=== PATIENT | female | born 1940 | race Caucasian/White ===

== ENCOUNTER 2020-10-21 09:20 | Outpatient (REF) | payer MEDICARE, SELFPAY ==
[2020-10-21 12:02] LABS: Alanine Aminotransferase 8 U/L (0-31); Albumin Level 4.4 g/dL (3.5-5.0); Alkaline Phosphatase 66 U/L (39-117); Anion Gap 14 (12-20); Aspartate Amino Transferase 15 U/L (5-31); Bilirubin Total 0.8 mg/dL (0.0-1.0); Blood Urea Nitrogen 13 mg/dL (9-16); Calcium 9.3 mg/dL (8.4-10.2); Carbon Dioxide 26 mmol/L (22-29); Chloride 106 mmol/L (96-108); Cholesterol 297 mg/dL; Estimated Glomerular Filt Rate 57; Glucose Fasting 95 mg/dL (60-99); HDL Cholesterol 62 mg/dL; LDL Cholesterol Calculated 202 mg/dl; Potassium 4.8 mmol/l (3.3-5.1); Sodium 141 mmol/L (135-145); Total Protein 6.9 g/dL (6.5-8.0); Triglycerides 169 mg/dL
[2020-10-21 12:06] LABS: Free T4 (Free Thyroxine) 0.92 ng/dL (0.71-1.85); Thyroid Stimulating Hormone 2.19 uIU/mL (0.32-4.0)
== END 2020-10-21 09:21 | disposition home or self-care (01) ==
LOC: HO.MANLR 09:20
PROVIDERS: PCP Internal Medicine; Visit Provider Internal Medicine
DX: I10 Essential (primary) hypertension (principal); E78.5 Hyperlipidemia, unspecified; E03.9 Hypothyroidism, unspecified
CPT/HCPCS: 80053; 80061; 84439; 84443

== ENCOUNTER 2022-02-05 11:05 | Outpatient (REF) | payer MEDICARE, SELFPAY ==
[2022-02-05 13:46] LABS: Hematocrit 40.4 % (37.0-47.0); Hemoglobin 13.8 g/dl (12.0-16.0); Mean Corpuscular HGB Conc 34.2 g/dl (31.0-35.0); Mean Corpuscular Hemoglobin 33.5 pg (27.0-33.0); Mean Corpuscular Volume 98.1 fL (80.0-98.0); Mean Platelet Volume 10.9 fL (9.4-12.3); Platelet Count 238 X10*3/uL (160-400); Red Blood Count 4.12 X10*6/uL (4.20-5.50); Red Cell Distribution Width 12.5 % (11.0-16.0); White Blood Count 5.3 X10*3/uL (4.8-10.8)
[2022-02-05 14:00] LABS: Alanine Aminotransferase 12 U/L (0-31); Albumin Level 4.4 g/dL (3.5-5.0); Alkaline Phosphatase 60 U/L (39-117); Anion Gap 12 (12-20); Aspartate Amino Transferase 19 U/L (5-31); Bilirubin Total 0.9 mg/dL (0.0-1.0); Blood Urea Nitrogen 16 mg/dL (9-16); Calcium 9.6 mg/dL (8.4-10.2); Carbon Dioxide 28 mmol/L (22-29); Chloride 106 mmol/L (96-108); Cholesterol 255 mg/dL; Estimated Glomerular Filt Rate 60; Glucose Fasting 94 mg/dL (60-99); HDL Cholesterol 66 mg/dL; LDL Cholesterol Calculated 165 mg/dl; Potassium 4.5 mmol/L (3.3-5.1); Sodium 141 mmol/L (135-145); Total Protein 6.7 g/dL (6.5-8.0); Triglycerides 124 mg/dL
[2022-02-05 14:21] LABS: Thyroid Stimulating Hormone 2.72 uIU/mL (0.32-4.0); Vitamin D 25-OH Total 10.2 ng/mL (>30)
== END 2022-02-05 11:06 | disposition home or self-care (01) ==
LOC: HO.MANLDS 11:05
PROVIDERS: PCP Internal Medicine; Visit Provider Internal Medicine
DX: E03.9 Hypothyroidism, unspecified (principal); E78.5 Hyperlipidemia, unspecified; I10 Essential (primary) hypertension
CPT/HCPCS: 36415; 80053; 80061; 82306; 84443; 85027

== ENCOUNTER 2022-07-26 09:22 | Outpatient (REF) | payer MEDICARE, SELFPAY ==
[2022-07-26 11:13] LABS: MANUAL DIFF FLAG NO
[2022-07-26 11:31] LABS: Basophils Percent Auto 0.7 % (0-2); Eosinophils Absolute Auto 0.1 X10*3/uL (0.0-0.4); Eosinophils Percent Auto 1.8 % (0-4); Hematocrit 40.6 % (37.0-47.0); Hemoglobin 14.1 g/dl (12.0-16.0); Imm Gran Abs Auto 0.02 X10*3/uL (0.00-0.03); Imm Gran Pct Auto 0.4 % (0.0-0.4); Lymphocytes Absolute Auto 2.5 X10*3/uL (1.2-4.9); Lymphocytes Percent Auto 44.6 % (20-40); Mean Corpuscular HGB Conc 34.7 g/dl (31.0-35.0); Mean Corpuscular Hemoglobin 34.2 pg (27.0-33.0); Mean Corpuscular Volume 98.5 fL (80.0-98.0); Mean Platelet Volume 10.5 fL (9.4-12.3); Monocytes Absolute Auto 0.5 X10*3/uL (0.1-1.2); Monocytes Percent Auto 8.8 % (2-11); Neutrophils Absolute Auto 2.4 x10*3/uL (2.0-8.3); Neutrophils Percent Auto 43.7 % (45-73); Platelet Count 212 X10*3/uL (160-400); Red Blood Count 4.12 X10*6/uL (4.20-5.50); Red Cell Distribution Width 12.8 % (11.0-16.0); White Blood Count 5.6 X10*3/uL (4.8-10.8)
[2022-07-26 12:14] LABS: Thyroid Stimulating Hormone 3.44 uIU/mL (0.32-4.0); Vitamin D 25-OH Total 54.8 ng/mL (>30)
== END 2022-07-26 09:23 | disposition home or self-care (01) ==
LOC: HO.MANLDS 09:22
PROVIDERS: Visit Provider Internal Medicine
DX: E55.9 Vitamin D deficiency, unspecified (principal)
CPT/HCPCS: 36415; 82306; 84439; 84443; 85025

== ENCOUNTER 2022-08-20 09:12 | Outpatient (REF) | payer MEDICARE, SELFPAY ==
[2022-08-20 11:11] LABS: MANUAL DIFF FLAG NO
[2022-08-20 11:32] LABS: Basophils Percent Auto 0.6 % (0-2); Eosinophils Absolute Auto 0.1 X10*3/uL (0.0-0.4); Eosinophils Percent Auto 0.7 % (0-4); Hematocrit 30.3 % (37.0-47.0); Hemoglobin 10.6 g/dl (12.0-16.0); Imm Gran Abs Auto 0.04 X10*3/uL (0.00-0.03); Imm Gran Pct Auto 0.6 % (0.0-0.4); Lymphocytes Absolute Auto 2.1 X10*3/uL (1.2-4.9); Lymphocytes Percent Auto 30.3 % (20-40); Mean Corpuscular Hemoglobin 35.3 pg (27.0-33.0); Monocytes Absolute Auto 0.6 X10*3/uL (0.1-1.2); Neutrophils Absolute Auto 4.1 x10*3/uL (2.0-8.3); Neutrophils Percent Auto 59.8 % (45-73); Platelet Count 256 X10*3/uL (160-400); Red Cell Distribution Width 12.8 % (11.0-16.0); White Blood Count 6.9 X10*3/uL (4.8-10.8)
[2022-08-20 11:55] LABS: Alanine Aminotransferase 10 U/L (0-31); Albumin Level 4.5 g/dL (3.5-5.0); Alkaline Phosphatase 44 U/L (39-117); Anion Gap 17 (12-20); Aspartate Amino Transferase 25 U/L (5-31); Bilirubin Total 0.6 mg/dL (0.0-1.0); Blood Urea Nitrogen 28 mg/dL (9-16); Calcium 9.4 mg/dL (8.4-10.2); Carbon Dioxide 23 mmol/L (22-29); Chloride 108 mmol/L (96-108); Estimated Glomerular Filt Rate 48; Glucose Random 101 mg/dL (60-115); Iron 72 mcg/dL (30-160); Percent Iron Saturation 22 % (15-50); Potassium 4.1 mmol/L (3.3-5.1); Sodium 144 mmol/L (135-145); Total Iron Binding Capacity 326 mcg/dL (228-428); Total Protein 6.6 g/dL (6.5-8.0); Unsaturated Iron Binding 254 ug/dL
[2022-08-20 11:59] LABS: Ferritin 129 ng/mL (10-250)
== END 2022-08-20 09:13 | disposition home or self-care (01) ==
LOC: HO.MANLDS 09:12
PROVIDERS: Visit Provider Physician Assistant
DX: K92.1 Melena (principal)
CPT/HCPCS: 36415; 80053; 82728; 83540; 85025

== ENCOUNTER 2024-02-14 14:17 | Outpatient (REF) | payer MEDICARE, SELFPAY ==
[2024-02-14 18:01] LABS: MANUAL DIFF FLAG NO
[2024-02-14 18:33] LABS: Alanine Aminotransferase 12 U/L (0-31); Albumin Level 4.4 g/dL (3.5-5.0); Alkaline Phosphatase 46 U/L (39-117); Anion Gap 13 (12-20); Aspartate Amino Transferase 23 U/L (5-31); Bilirubin Total 0.7 mg/dL (0.0-1.0); Blood Urea Nitrogen 19 mg/dL (9-16); Calcium 9.3 mg/dL (8.4-10.2); Carbon Dioxide 24 mmol/L (22-29); Chloride 106 mmol/L (96-108); Estimated Glomerular Filt Rate > 60; Glucose Random 81 mg/dL (60-115); Potassium 4.6 mmol/L (3.3-5.1); Sodium 138 mmol/L (135-145); Total Protein 6.6 g/dL (6.5-8.0)
[2024-02-14 18:37] LABS: Basophils Percent Auto 0.5 % (0-2); Eosinophils Absolute Auto 0.1 X10*3/uL (0.0-0.4); Eosinophils Percent Auto 0.9 % (0-4); Hematocrit 38.5 % (37.0-47.0); Hemoglobin 13.2 g/dl (12.0-16.0); Imm Gran Abs Auto 0.01 X10*3/uL (0.00-0.03); Imm Gran Pct Auto 0.2 % (0.0-0.4); Lymphocytes Absolute Auto 2.3 X10*3/uL (1.2-4.9); Lymphocytes Percent Auto 39.2 % (20-40); Mean Corpuscular HGB Conc 34.3 g/dl (31.0-35.0); Mean Corpuscular Hemoglobin 34.4 pg (27.0-33.0); Mean Corpuscular Volume 100.3 fL (80.0-98.0); Monocytes Absolute Auto 0.5 X10*3/uL (0.1-1.2); Monocytes Percent Auto 8.2 % (2-11); Platelet Count 217 X10*3/uL (160-400); Red Blood Count 3.84 X10*6/uL (4.20-5.50); Red Cell Distribution Width 12.4 % (11.0-16.0); White Blood Count 5.9 X10*3/uL (4.8-10.8)
[2024-02-14 18:49] LABS: Vitamin D 25-OH Total 23.8 ng/mL (>30)
== END 2024-02-14 14:18 | disposition home or self-care (01) ==
LOC: HO.MANLDS 14:17
PROVIDERS: Visit Provider Internal Medicine
DX: I10 Essential (primary) hypertension (principal); E55.9 Vitamin D deficiency, unspecified
CPT/HCPCS: 36415; 80053; 82306; 85025

== ENCOUNTER 2025-04-03 11:32 | Outpatient (REF) | payer MEDICARE, SELFPAY ==
--- OUTSIDE RECORDS SUMMARY | 2025-04-03 12:52 | XMS_ITS | Data Portability ---
Author Organization [facility], Main Office Address [address] [place] [address] [facility] [address] [place] [address] Care Team Providers Care Director Financial Analysis Name Role Phone JR ZUNIGA ([place]) OTHER Assessment Encounter Date Assessment Date Assessment LastModified by Organization Details LastModified Time 04/07/2018 04/07/201804/06: na 143, k 5.3, bun 17, creat 0.70, wbc 8.48, hgb 10.3, hct 31.7 glord Not available 04/07/2018 11:52:06 04/13/2018 04/13/201804/06: na 143, k 5.3, bun 17, creat 0.70, wbc 8.48, hgb 10.3, hct 31.7 [place] Not available 04/13/2018 11:17:51 04/17/2018 04/17/2018 Labs 04/11-WBC-6.85 , H/H-10.4/32.4 , plts-277, BUN/Cr-15/0.7 , Na+145, K+5.0 glord Not available 04/17/2018 11:49:48 04/27/2018 04/27/2018 6: na 145, k 5.2, glord Not available 04/27/2018 11:54:34 Plan of Treatment Reminders Order Date Submit Date Provider Last Modified By Organization Details Last Modified Time Details Appointments None record ed. Lab None record ed. Referral None record ed. Procedures None record ed. Surgeries None record ed. Imaging None record ed. Medication Orders None record ed. Patient TargetsNo targets recorded. Patient InstructionsNo instructions recorded. Reason for Referral None Reported. Problems Name Problem SNOMED Code Status Onset Date Resolution Date Notes Provider Name and Address Organization Details Recorded Time Constipatio n 86171531 Active 2017 ANDREINA LORD [address], [address], [place], [address], [facility] 8 11:47:31 History of right hip replacement 2707533647853 108 Active 2017 ANDREINA BAUTISTA [address] [place] [address], [address], [place], [address], [facility] 8 11:48:12 Hyperlipide angeli 48368848 Active [address], [address], [place], [address], [facility] 8 11:48:47 Essential hypertensio n 36543183 Active [address], [address], [place], [address], [facility] 8 11:49:10 Depressive disorder 88215605 Active [address], [address], [place], [address], [facility] 8 11:49:35 Hyperkalemi a 28176622 Active [address], [address], [place], [address], [facility] 8 11:52:09 Fracture of talus 482228846 Active [address], [address], [place], [address], [facility] 8 12:04:44 Closed intertrocha nteric fracture of right femur 8537374825215 9109 Active 2017 Allyson Guerra MD [address] [facility], [address], [place], [address], [facility] 8 11:41:31 Fracture of talus 860490235 Active 2017 Allyson Guerra MD [address] [facility], [address], [place], [address], [facility] 8 11:43:25 Cramp in calf 313475088 Active 2017 Allyson Guerra MD [address] [facility], [address], [place], [address], [facility] 8 11:47:29 Problem Notes None recorded. Medical Equipment None Reported. Allergies No known drug allergies Vitals Date Recorded Heart rate Respiratory rate Body temperature Oxygen saturation Oxygen saturation in Arterial blood by Pulse oximetry Systolic blood pressure Diastolic blood pressure Provider Name and Address Organization Details Last Updated DateTime 8 70 /min 18 /min 97.9 [degF] 96 % 96 % 136 mm[Hg] 78 mm[Hg] ANDREINA BAUTISTA [address] [facility], [address], [place], [address], [facility] 8 12:09:28 Date Recorded Body weight Heart rate Respiratory rate Body temperature Oxygen saturation Oxygen saturation in Arterial blood by Pulse oximetry Body mass index (BMI) Body height Systolic blood pressure Diastolic blood pressure Systolic blood pressure Diastolic blood pressure Systolic blood pressure Diastolic blood pressure Provider Name and Address Organization Details Last Updated DateTime 8 18918.8 8 g 75 /min 15 /min 98.4 [degF] 98 % 98 % 28.6 kg/m2 154.94 cm 130 mm[Hg] 65 mm[Hg] 144 mm[Hg] 72 mm[Hg] 171 mm[Hg] 81 mm[Hg] Allyson Guerra MD [address] [facility], [facility] [address], [place], [address], [facility] 8 10:57:39 Date Recorded Body height Heart rate Respiratory rate Body temperature Oxygen saturation Oxygen saturation in Arterial blood by Pulse oximetry Systolic blood pressure Diastolic blood pressure Provider Name and Address Organization Details Last Updated DateTime 8 154.94 cm 71 /min 20 /min 97.1 [degF] 96 % 96 % 174 mm[Hg] 83 mm[Hg] [facility] [address] [facility], [address], [place], [address], [facility] 8 11:42:59 Date Recorded Body height Heart rate Respiratory rate Body temperature Oxygen saturation Oxygen saturation in Arterial blood by Pulse oximetry Systolic blood pressure Diastolic blood pressure Systolic blood pressure Diastolic blood pressure Provider Name and Address Organization Details Last Updated DateTime 8 154.94 cm 85 /min 16 /min 98.6 [degF] 95 % 95 % 167 mm[Hg] 88 mm[Hg] 176 mm[Hg] 80 mm[Hg] ANDREINA BAUTISTA [address] , [address], [place], [address], [facility] 8 11:37:40 Date Recorded Systolic blood pressure Diastolic blood pressure Provider Name and Address Organization Details Last Updated DateTime 04/12/2018 130 mm[Hg] 65 mm[Hg] Fatimah Taylor [facility] 04/12/2018 14:59:38 Social History Question Answer Notes LastModified by Organizat ion Details LastModified Time Tobacco Smoking Status Never Smoker ANDREINA BAUTISTA [address] , [address], [place], [address], [facility] 04/07/2018 11:53:41 Do You Have An Advance Directive? Yes Full Code Information not available 04/07/2018 How Many Years Have You Consumed Alcohol? 0 Information not available 04/07/2018 How Much Tobacco Do You Chew? None Information not available 04/07/2018 How Many Days In The Past Year Have You Had A Heavy Drinking Consumption (4+ Female, 5+ Male)? 0 Information not available 04/07/2018 Do You Have A Medical Power Of Manager Group Home? Yes [place] Information not available 04/13/2018 What Was The Date Of Your Most Recent Tobacco Screening? 04/27/2018 Information not available 06/06/2019 How Much Tobacco Do You Smoke? No Information not available 04/07/2018 Has Tobacco Cessation Counseling Been Provided? No Information not available 04/07/2018 How Many Years Have You Smoked Tobacco? 0 Information not available 04/07/2018 Sex: Unknown Functional Status Question Answer Note LastModified by Organization D etails LastModified Time What is your level of alcohol consumption? None Information not available 04/07/2018 Mental Status None recorded. Family History Nothing Reported Notes:Fa at 77, had HTN , mo lived to 89 Medical History No medical history recorded. Gynecological HistoryNo gynecological history recorded. Obstetrics History GPAL:G 0 P 0 0 0 0 Past Encounters Encounter ID Performer Location Encounter Start Date Encounter Closed Date Diagnosis/Indication Diagnosis SNOMED-CT Code Diagnosis ICD10 Code Diagnosis Note [id number] ANDREINA BAUTISTA [facility] on [address] [place] [address] 04/07/2018 11:43:00 04/19/2018 13:48:55 Constipation 22201973 K59.03 Schedule colace 100 mg BIDmonitor for constipati on History of right hip replacement 4401113180 550665 Z96.641 hydromorph one 2 mg q 4 hrs PRN mod- 4 mg q 4 severeASA 325 mg BIDibuprof en 400 mg Q 6 PRNtylenol 650 mg q 8 PRNmonitor for pain control Hyperlipidemia 46638269 E78.2 Lovastatin 20 mg qhsmonitor lipids PRN Essential hypertension 47318531 I10 metoprolol tart 25 mg BIDmonitor Bp adjust as needed Depressive disorder 3548 9007 F32.89 sertraline 150 mg qdmonitor behavior, consult NEG PRN Hyperkalemia 96764139 E8 7.5 5.3- increase fluid consumptio nrecheck labs Tuesday Fracture of talus 114406 003 S92.114D Source of the most pain for this ptno rec from hospital records on how to proceedwil l consult with PT/OT on plan for pain control and healingque stion use of walking boot or cast for stabilizat ion? [id number] [place] [address] 04/12/2018 14:51:25 04/19/2018 15:22:10 Constipation 91733434 K59.00 K59.09 Colace 100 mg BIDAdd Miralax 17 [place] [id number] MD JR Luz [address] [place] [address] 04/13/2018 10:54:30 04/19/2018 16:09:17 History of right hip replacement 8133970184 726791 M15.0 As above, f/u with ortho. Fracture of talus 359661 003 S92.114D Pain still severe, call in to ortho for advice and sooner f/u appt.Possi luis enrique walking boot, air splint or cast for stabilizat ion? Constipation 18261671 K5 9.03 On Colace 100 mg BID and miralax 17 gm qd, also eating prunes. No BM et. But she feels like she may need to soon. Wants. to hold off on MOM until later today. Hyperlipidemia 21910107 E78.2 Continue lovastatin 20 mg qhsmonitor lipids as outpt. Essential hypertension 81300696 I10 One high reading when pain was severe, otherwise WNL. Continue metoprolol 25 mg BID.Monito r BP and labs. Depressive disorder 3548 9007 F32.89 Mood stable, just very frustrated by situation. Continue sertraline 150 mg qdMonitor behavior, consult NEG PRN Hyperkalemia 06301407 E8 7.5 Improved to 5.0, follow. Closed intertrochanteric fracture of right femur 9784768410 6961450 S72.144D Hip pain is much improved, still using pain med, but primarily for ankle pain. Continue hydromorph one 2 mg q 4 hrs PRN mod pain and 4 mg q 4 prn severe pain, ibuprofen 400 mg Q 6 PRN and tylenol 650 mg q 8 PRN. Continue ASA 325 mg BID for DVT prophylaxi s. PT/OT for mobility and strengthen ing. Allow increased wt. bearing when ortho says ok. F/U with ortho as planned. Cramp in calf 029103436 R25.2 Other pain she describes is cramp in right calf. I wonder if she needs vascular eval? Will see what Dr. Chahal thinks. Also could be due to tensing that side due to other pain. [id number] ANDREINA ZUNIGA [address] [place] [address] 04/17/2018 11:23:25 04/20/2018 11:07:33 Closed intertrochanteric fracture of right femur 2822873519 0297145 S72.144D Hip pain is much improved, still using pain med, but primarily for ankle pain. Continue hydromorph one 2 mg q 4 hrs PRN mod pain and 4 mg q 4 prn severe pain, ibuprofen 400 mg Q 6 PRN and tylenol 650 mg q 8 PRN. Continue ASA 325 mg BID for DVT prophylaxi s. Eventually she would like to transition to tramadol and come off dilaudid but at this time the pain is too severe. PT/OT for mobility and strengthen ing. Allow increased wt. bearing when ortho says ok. F/U with ortho this tuesday Fracture of talus 620177 003 S92.114D Pain still severe, call in to ortho for advice and sooner f/u appt- this tuesday at 9 am.Possibl y walking boot, air splint or cast for stabilizat ion? History of right hip replacement 3812399862 632203 M15.0 As above, f/u with ortho. Constipation 19114723 K5 9.03 Increase colace to 150 mg BID and miralax 17 gm qd, also eating prunes.Add senna 8.6 mg QDassess effectiven ess Cramp in calf 796352294 R25.2 Other pain she describes is cramp in right calf. I wonder if she needs vascular eval? Will see what Dr. Chahal thinks. Also could be due to tensing that side due to other pain. [id number] ANDREINA ZUNIGA [address] [place] [address] 04/27/2018 11:36:36 05/02/2018 12:13:13 Closed intertrochanteric fracture of right femur 1934055139 2484832 S72.144D Hip pain has resolved Continue pain meds for ankle pain Continue hydromorph one 2 mg q 4 hrs PRN mod pain and 4 mg q 4 prn severe pain, ibuprofen 400 mg Q 6 PRN and tylenol 650 mg q 8 PRN. Continue ASA 325 mg BID for DVT prophylaxi s. Allow increased wt. bearing when ortho says ok. F/U with ortho as planned. [facility] to follow once outpatient Constipation 56248578 K5 9.03 On Colace 100 mg BID and miralax 17 gm qd, also eating prunes. Hyperlipidemia 04052105 E78.2 Continue lovastatin 20 mg qhsmonitor lipids as outpt. Essential hypertension 85572540 I10 Elevated readings starting on 04/24Increa se metoprolol to 50 mg BID.Get BMP in the morning following elevated K last draw, hold off on discharge until lab results come inMonitor BP q shift Depressive disorder 7588 9007 F32.89 Mood stable, just very frustrated by situation. Continue sertraline 150 mg qdMonitor behavior, consult psych outpatient once discharged Hyperkalemia 59914209 E8 7.5 5.2 last drawBMP in AM to determine trend Health Concerns Section Related Observation LastModified by Organization Detai ls LastModified Time None Recorded Concern Status LastModified by Organization Details LastModified Time None Recorded Advance Directives Directive Y: full code Payers Encounter Date Sequence Insurance Name Policy Number Policy Wood Covered Member ID Wood Member ID Guarantor Name 04/07/2018 1 [facility] - MEDICARE PREFERRED (MEDICARE REPLACEMENT HMO) ROSETTA Ontiveros Camiller[place] [id number] [place] 04/12/2018 1 [facility] - MEDICARE PREFERRED (MEDICARE REPLACEMENT HMO) MCKIN[place]PS Rama Camilleri [id number] [place] 04/13/2018 1 [facility] - MEDICARE PREFERRED (MEDICARE REPLACEMENT HMO) ROSETTA Rama Cam[place]i [id number] [place] 04/17/2018 1 [facility] - MEDICARE PREFERRED (MEDICARE REPLACEMENT HMO) ROSETTA Rama Camilleri [id number] [place] 04/27/2018 1 [facility] - MEDICARE PREFERRED (MEDICARE REPLACEMENT HMO) ROSETTA Rama Camilleri [id number] [place] Notes Date Note Type Note Provider Name and Address Organization Details Recorded Time 04/07/2018 text/html 77 year old fema le seen today for initial intake visit. S/p right hip replacement bu Dr. Chahal on 03/20, uneventful pt tolerated well. Discharged home on 03/22 with no issues but then presented back to ED with severe pain in operative hip. Xray confirmed trochanteric fracture, ortho rec no surgical intervention. She is to continue high dose ASA for DVT prop. and toe- touch weightbearing as tolerated. She also has pain in right calf and ankle and was found to have chronic avulsion fracture, no DVT seen. Admitted to this facility for continued care and therapy. ANDREINA BAUTISTA [address] [place] [address], [address], [place], [address], [facility] [employer] 04/12/2018 15:38:06 04/12/2018 text/html 77 yo female see n for report of constipation. Patient here for rehab after right hip replacement. Patient reports stools are hard and infrequent. Currently on colace only for bowel regimen. Fatimah becker, [facility] [employer] 04/12/2018 15:36:34 04/13/2018 text/html This is a 77 yo woman who is here for rehab after a right hip fx which occurred postop after a right THR done by Dr. Chahal on 03/20. The original procedure was uneventful, and the pt tolerated it well. She was discharged home on 03/22 in good condition. She then had increasing pain, so severe that she couldn't bear wt. and presented back to ED. Xray showed a nondisplaced intertrochanteric fx, with no disruption of the prosthesis. Ortho recommended no surgical intervention. She is to continue high dose ASA for DVT prophylaxis. Allowed only toe- touch weightbearing. She also has pain in right calf and ankle and was found to have chronic avulsion fx of the medial malleolus. Doppler done and no DVT seen. Her primary c/o today is right lateral ankle pain and calf cramps. She says her hip pain isn't bad. Her PMH includes HTN, HLD, osteoporosis, OA, hypothyroidism and depression. 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 Her primary c/o today is right lateral ankle pain and calf cramps. She says her hip pain isn't bad but her calf and ankle are excruciating. Pt is very weepy and discouraged today stating that no one is able to help her with this pain and she feels like it should be getting better. She has made a follow up apt for this tuesday with the surgeon to discuss a plan moving forward. She also complains that her stool is hard despite the bowel meds she is on and would like those addressed. Her PMH includes HTN, HLD, osteoporosis, OA, hypothyroidism and depression. 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 She is being seen today for discharge summary visit and will be going home tomorrow. Her primary c/o is right lateral ankle pain and calf cramps that does not seem to be improving despite pain meds and constant icing. Staff is reporting an increase in blood pressures starting last night and continuous through today, she was started on a higher dose of metoprolol BID. Pt appears in NAD, denies headache, chest pain, dizziness or any other issues. Would like to get blood pressures under control before discharge home, will continue to monitor today and tomorrow before a decision is made. Her PMH includes HTN, HLD, osteoporosis, OA, hypothyroidism and depression. ANDREINA BAUTISTA [address] [place] [address], [address], [place], [address], [facility] [employer] 04/27/2018 11:55:28 OBGyn Episode No OBEpisode recorded.
--- OUTSIDE RECORDS SUMMARY | 2025-04-03 12:52 | XMS_ITS | Data Portability ---
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 REVIEW OF PRIOR EXTERNAL NOTES/RESULTS, ORDERING OF TEST(S) CATEGORY 2. 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) MDM MODERATE MUST MEET 2 OUT OF 3 ELEMENTS: PROBLEMS, DATA OR RISK ELEMENT 1: PROBLEMS ADDRESSED 1 OR MORE CHRONIC ILLNESS WITH EXACERBATION OR 2 OR MORE STABLE CHRONIC ILLNESSES OR 1 UNDIAGNOSED NEW PROBLEM OR 1 ACUTE ILLNESS W/SYMPTOMS OR 1 ACUTE COMPLICATED INJURY ELEMENT 2: DATA MUST MEET 1 OF 3 CATEGORIES CATEGORY 1: REVIEW OF PRIOR EXTERNAL NOTES, REVIEW OF RESULTS, ORDERING OF EACH TEST, ASSESSMENT REQUIRING INDEPENDENT HISTORIAN OR CATEGORY 2: INDEPENDENT INTERPRETATION OF TESTS BY ANOTHER PHYSICIAN OR SPECIALIST OR CATEGORY 3: DISCUSSION OF MGT OR TEST INTERPRETATION W/EXTERNAL PHYSICIAN OR SPECIALIST ELEMENT 3: RISK RISK OF COMPLICATIONS AND/OR MORBIDITY OR MORTALITY OF PATIENT MANAGEMENT PROVIDER MUST THOROUGHLY DOCUMENT EACH ELEMENT THAT IS COVERED Not available 03/25/2025 13:41:37 Plan of Treatment Reminders Order Date Submit Date Provider Last Modified By Organization Details Last Modified Time Details Appointments FOLLOW UP 15 2024 01:30P M DR MAGALLANES Not available Not available Not available Lab vitamin D, 25-hydrox y, total, serum 2024 025 [facility], [address] [place] [address], [id number], 03/25/2025 13:44:37 vitamin B12 + folate, serum or blood 2024 025 [facility], [address] [place] [address], [id number], 03/25/2025 13:44:37 CMP, serum or plasma 2024 025 [facility], [address] [place] [address], [id number], 03/25/2025 13:44:38 CBC 2024 025 [facility], [address] [place] [address], [id number], 03/25/2025 13:44:37 TSH, serum or plasma 2024 025 [facility], [address] [place] [address], [id number], 03/25/2025 13:44:38 vitamin D, 25-hydrox y, total, serum 2023 024 [facility], [address] [place] [address], [address], 02/15/2024 11:13:26 CMP, serum or plasma 2023 024 [facility], [address] [place] [address], [id number], 02/15/2024 11:13:26 CBC 2023 024 [facility], [address] [facility], [place], [address], 02/15/2024 11:13:26 Referral orthopedi c surgeon referral 2024 025 makenzie Spain MD, [address] [place] [address], [id number], 11/23/2024 08:32:48 Procedures None recorded. Surgeries None recorded. Imaging None recorded. Medication Orders None recorded. Patient TargetsNo targets recorded. Patient InstructionsNo instructions recorded. Reason for Referral Orthopedic Surgeon Referral for Osteoarthritis of joint of hand bilateral hand pain, OA, neuropathy (L) and contracture (R) Referring Physician: Bisi Ramos, Internal Medicine, Encounter Date: 11/16/2024 Results Created Date Observation Date Name Description Value Unit Range Abnormal Flag Note LastModifiedBy Organization Detail LastModifiedTime Result Notes None recorded. Problems Name Problem SNOMED Code Status Onset Date Resolution Date Notes Provider Name and Address Organization Details Recorded Time Degenera tion of lumbosac ral interver tebral disc 57108613 Active 2020 Not Available [facility] 4 17:39:22 Vitamin D deficien cy 65173764 Active 2021 Not Available [facility] 4 17:39:22 Mood disorder 71856810 Active 2021 Not Available [facility] 4 17:39:22 Melena 2170253 Active 2021 Not Available [facility] 4 17:39:22 Bilatera l osteoart hritis of knees 73807714276 9107 Active 2022 Not Available [facility] 4 17:39:22 Osteoart hritis of left knee joint 31283886129 9109 Active 2023 Dhiraj Magallanes, DO [address] [place], [address], [facility] [place] [facility] 4 13:49:30 Hyperlip idemia 75955810 Active 2017 Not Available [facility] 4 17:39:22 Hypothyr oidism 87861836 Active 2017 Not Available [facility] 4 17:39:22 Essentia l hyperten juan 72680058 Active 2017 Not Available [facility] 4 17:39:22 Infectio n of tooth 559221686 Active 2023 Dhiraj Magallanes DO [address] [place] [address], [address], [facility] [place] [facility] 4 14:16:52 Osteoart hritis of joint of hand 88533281 Active 2024 GAYLE MCBRIDE [address] [place] [address], [phone], [facility] [place] [facility] 5 14:18:31 Osteoart hritis of joint of hand 44814362 Active 2024 GAYLE MCBRIDE [address] [place] [address], [address], [facility] [place] [facility] 5 14:18:56 Closed intertro chanteri c fracture 57707838 Completed 201704/28/2018 [facility] RICHARD Hodges [address] [place] [address], [address], [facility] [place] [facility] 8 12:08:10 Closed fracture of talus 40864500 Completed 201704/28/2018 Mary RICHARD Hodges [address] [place] [address], [address], [facility] [place] [facility] 8 12:08:07 Closed fracture of talus 38457810 Active 2017 Not Available [facility] 4 17:39:22 Closed intertro chanteri c fracture 59873009 Active 2017 Not Available [facility] 4 17:39:22 Notes:Some problems listed i n Documents: #[id number], #[id number], #[id number], #[id number], #[id number], #[id number], #[id number] could not be added to this patient's chart. Please review these documents and add these problems to the patient's chart manually as needed. Problem Notes None recorded. Procedures Surgical History Date Name Laterality Status Provider Name and Address Organization Details Recorded Time 023 Corticosteroid Injection completed Dhiraj Magallanes, DO [address] [place], [address], [facility] [place] [facility] 03/01/2023 13:39:23 Imaging Results None recorded. Procedure Notes None recorded. Medical Equipment None Reported. Allergies Allergen ID Allergen Name Allergen Category Reaction Reaction Severity Criticality Documentation Date Start Date Code Code System Note Provider Name and Address Organization Details Recorded Time 3201 lisinopri l medicatio n cough Not available Not available 05/30/2019 41295 RxNorm Dhiraj Magallanes, DO [address] [place], [address], [facility] [place] [facility] 9 13:36:13 Medications Name Sig Start Date Stop Date Status Note LastModified by Organization Details LastModified Time amoxicillin 500 mg capsule TAKE 1 CAPSULE BY MOUTH EVERY 8 HOURS FOR 10 DAYS 11/16 completed Not Available Not Available Not Available prednisone 10 mg tablet 40 mg x 2 days, 30 mg x 2 days, 20 mg x 2 days, 10 mg x 2 days 12/03 completed Not Available Not Available Not Available aspirin 325 mg tablet Take 1 tablet twice a day by oral route. 09/08 completed Not Available Not Available Not Available metoprolol succinate ER 50 mg tablet,exte nded release 24 hr TAKE 1 TABLET BY MOUTH TWICE DAILY 08/11 completed Not Available Not Available Not Available senna 8.6 mg tablet Take 1 tablet every day by oral route. 09/08 completed Not Available Not Available Not Available ibuprofen 200 mg capsule Take 2 capsules every 6 hours by oral route. 08/18 completed Not Available Not Available Not Available metoprolol succinate ER 100 mg tablet,exte nded release 24 hr TAKE 1 TABLET BY MOUTH EVERY DAY active Not Available Not Available No t Available sertraline 100 mg tablet TAKE 1 AND ONE-HALF TABLETS BY MOUTH ONCE DAILY active Not Available Not Available No t Available tramadol 50 mg tablet TAKE 1 TABLET BY MOUTH EVERY 6 HOURS NEEDED active Not Available Not Available No t Available levothyroxi ne 75 mcg tablet TAKE 1 TABLET BY MOUTH EVERY DAY active Not Available Not Available No t Available hydromorpho ne 2 mg tablet Take 1 tablet every 4 hours by oral route. 11/28 completed Not Available Not Available Not Available meclizine 25 mg tablet Take 1 tablet 3 times a day by oral route as needed for 5 days. 05/30 completed Not Available Not Available Not Available cephalexin 500 mg capsule Take 1 capsule every 6 hours by oral route for 7 days. 07/11 completed Not Available Not Available Not Available pantoprazol e 40 mg tablet,serena yed release TAKE 1 TABLET BY MOUTH EVERY DAY 07/11 completed Not Available Not Available Not Available gabapentin 300 mg capsule TAKE 1 CAPSULE BY MOUTH AT BEDTIME active Not Available Not Available No t Available lisinopril 5 mg tablet TAKE 1 TABLET BY MOUTH ONCE DAILY 12/03 completed Not Available Not Available Not Available diclofenac sodium 50 mg tablet,serena yed release Take 1 tablet twice a day by oral route as needed for 30 days. 12/03 completed Not Available Not Available Not Available lovastatin 20 mg tablet TAKE 1 TABLET BY MOUTH ONCE A DAY 12/03 completed Not Available Not Available Not Available methylpredn isolone 4 mg tablets in a dose pack Alt: 24 mg PO on day 1, then decr. by 4 mg/day x5 days per dose pack instructi ons 11/28 completed Not Available Not Available Not Available oxycodone 5 mg tablet 05/10 completed Not Available Not Available Not Available Pneumovax-2 3 25 mcg/0.5 mL injection syringe 12/03 completed Not Available Not Available Not Available duloxetine 60 mg capsule,del ayed release Take 1 capsule every day by oral route for 30 days. 08/01 completed Not Available Not Available Not Available Boostrix Tdap 2.5 Lf unit-8 mcg-5 Lf/0.5 mL intramuscul ar syringe 12/03 completed Not Available Not Available Not Available Vitamin D3 2,000 units once a day 08/11 completed Not Available Not Available Not Available Miralax 17 grams 09/08 completed Not Available Not Available Not Available Prevnar 13 (PF) 0.5 mL intramuscul ar syringe 11/28 completed Not Available Not Available Not Available metoprolol succinate ER 100 mg capsule sprinkle, ext. release 24 hr Take 1 capsule every day by oral route for 30 days. 12/03 completed Not Available Not Available Not Available Tylenol 325 mg capsule Take 2 capsules every 8 hours by oral route. 05/30 completed prn Not Available Not Available Not Available Fluzone High-Dose 0737-1327 (PF) 180 mcg/0.5 mL intramuscul ar syringe 11/28 completed Not Available Not Available Not Available Fluzone High-Dose (PF) 180 mcg/0.5 mL intramuscul ar syringe 12/03 completed Not Available Not Available Not Available Fluad Quad 9095-7075(6 5yr up)(PF) 60 mcg (15 mcg x 4)/0.5mL IM syringe 12/03 completed Not Available Not Available Not Available Vitals Date Recorded Body height Body mass index (BMI) Body weight Heart rate Oxygen saturation Oxygen saturation in Arterial blood by Pulse oximetry Systolic blood pressure Diastolic blood pressure Provider Name and Address Organization Details Last Updated DateTime 3 154.94 cm 22.7 kg/m2 87647.0 8 g 60 /min 97 % 97 % 140 mm[Hg] 80 mm[Hg] Dhiraj Magallanes, DO [address] [place], [address] [place] [address] Internal Medicine 3 11:35:44 Date Recorded Body height Body mass index (BMI) Body weight Heart rate Oxygen saturation Oxygen saturation in Arterial blood by Pulse oximetry Systolic blood pressure Diastolic blood pressure Provider Name and Address Organization Details Last Updated DateTime 4 154.94 cm 22.1 kg/m2 38380.3 1 g 58 /min 95 % 95 % 160 mm[Hg] 90 mm[Hg] Tiara Pike [facility] 4 13:31:39 Date Recorded Body height Heart rate Oxygen saturation Oxygen saturation in Arterial blood by Pulse oximetry Systolic blood pressure Diastolic blood pressure Provider Name and Address Organization Details Last Updated DateTime 5 154.94 cm 58 /min 96 % 96 % 158 mm[Hg] 92 mm[Hg] Jazmine Pena [facility] 5 14:09:34 Date Recorded Body height Body mass index (BMI) Body weight Heart rate Oxygen saturation Oxygen saturation in Arterial blood by Pulse oximetry Systolic blood pressure Diastolic blood pressure Provider Name and Address Organization Details Last Updated DateTime 5 154.94 cm 20.8 kg/m2 25437.1 6 g 52 /min 97 % 97 % 128 mm[Hg] 62 mm[Hg] Dhiraj Magallanes, DO [address] [place], [address] [place] [address] Internal Medicine 5 13:32:39 Social History Question Answer Notes LastModified by [employer] Details LastModified Time Tobacco Smoking Status Never Smoker Not Available [facility] 09/16/2020 03:36:23 What Is Your Level Of Caffeine Consumption? Occasional [id number] Information not available 09/16/2020 What Was The Date Of Your Most Recent Tobacco Screening? 03/25/2025 Information not available 03/25/2025 Sex: Unknown Functional Status Question Answer Note LastModified by [employer] Details LastModified Time Do you use any illicit or recreational drugs? No [email or web address] Information not available 02/14/2024 Do you or have you ever used any other forms of tobacco or nicotine? No Information not available 02/16/2023 What is your level of alcohol consumption? None [id number] Information not available 09/16/2020 What is your exercise level? None [id number] Information not available 09/16/2020 Mental Status None recorded. Family History Nothing Reported. Medical History No medical history recorded. Gynecological HistoryNo gynecological history recorded. Obstetrics History GPAL:G 0 P 0 0 0 0 Immunizations Vaccine Type Date Status Note Provider Nam e and Address Organization Details Recorded Time Influenza, split virus, quadrivalent, preservative 1 completed Not Available [facility] 11/15/2023 17:39:23 COVID-19, mRNA, LNP-S, PF, 30 mcg/0.3 mL dose 1 completed Not Available [facility] 11/15/2023 17:39:23 Pneumococcal conjugate PCV 13 8 completed Not Available [facility] 11/15/2023 17:39:24 Influenza, split virus, quadrivalent, preservative 8 completed Not Available [facility] 11/15/2023 17:39:23 COVID-19, mRNA, LNP-S, PF, 30 mcg/0.3 mL dose 2 completed Not Available [facility] 11/15/2023 17:39:23 zoster recombinant 2 completed Not Available [facility] 11/15/2023 17:39:23 zoster, unspecified formulation 2 completed Not Available [facility] 11/15/2023 17:39:23 COVID-19, mRNA, LNP-S, bivalent, PF, 30 mcg/0.3 mL dose 2 completed Not Available [facility] 11/15/2023 17:39:24 Influenza, split virus, quadrivalent, preservative 9 completed Not Available [facility] 11/15/2023 17:39:23 pneumococcal polysaccharide PPV23 9 completed Not Available [facility] 11/15/2023 17:39:24 Tdap 0 completed Not Available [facility] 11/15/2023 17:39:24 Influenza, split virus, quadrivalent, preservative 0 completed Not Available [facility] 11/15/2023 17:39:23 COVID-19, mRNA, LNP-S, PF, 30 mcg/0.3 mL dose 1 completed Not Available [facility] 11/15/2023 17:39:23 COVID-19, mRNA, LNP-S, PF, 30 mcg/0.3 mL dose 1 completed Not Available [facility] 11/15/2023 17:39:23 Past Encounters Encounter ID Performer Location Encounter Start Date Encounter Closed Date Diagnosis/Indication Diagnosis SNOMED-CT Code Diagnosis ICD10 Code Diagnosis Note [id number] DO Jhonatan Vaz Internal [facility] [address] [facility],[place] [address] 02/24/2018 13:41:28 02/24/2018 16:08:38 Pre-surgery evaluation 480934743 Z01.818 cleared for surgery no major issues must take bp med and take thyroid med before surgery [id number] Dhiraj Magallanes [facility] Internal Medicine [address] [facility] [address] [facility] [address] 04/28/2018 11:41:54 04/28/2018 14:06:52 Closed intertrochanteric fracture 49920780 S72.144A per talib mcclain Closed fra cture of talus 08801838 S92.101A chronic avulsion fracture chronic ankle pain x 6 weeks, since right THR pt requests second opinion Pain in calf 020599708 M 79.669 persistent , unclear etiology x 6 weeks only since right THR dvt was ruled out not classic with claudicati on, should consider after ortho second op. Total repl acement of hip 88039764 Z96.649 recovery felt to be delayed due to fracture, nonetheles s emmy g [id number] Dhiraj Magallanes [facility] Internal Medicine [address] [facility],[place] Finn [facility] [place] [address] 05/10/2018 10:12:32 05/10/2018 15:51:49 Closed intertrochanteric fracture 33537378 S72.144A per talib mcclain Closed fra cture of talus 01352991 S92.101A chronic avulsion fracture chronic ankle pain x 6 weeks, since right THR pt requests second opinion Pain in calf 159030318 M 79.669 persistent , unclear etiology x 6 weeks only since right THR dvt was ruled out not classic with claudicati on, should consider after ortho second op. Total repl acement of hip 73619104 Z96.649 recovery felt to be delayed due to fracture, nonethras s martellin g Essential hypertension 64335655 I10 improved compared to prior readings. was recently started on lisinopril 5 mg qd 4 days ago will continue to monitor at home most recent bp at home <140/80 Ankle pain 861619459 M25 .579 air cast add ibuprofen Constipation 91571563 K5 9.00 opioid induced add miralax add senna if no bm x 24-48 hours [id number] Dhiraj Magallanes [facility] Internal Medicine [address] [facility],[place] [address] [place]uma [facility] [place] [address] 09/08/2018 14:11:41 09/08/2018 15:08:08 Vertigo 299182310 R42 likely vestibular neuritis which she had about 2-3 years ago and it ultimately resolved after about a week total Hypothyroidism 11598656 E03.9 Essential hypertension 81582565 I10 usually home BP are 120/60's at home will monitor at [facility] and f/u for recheck if elevated otherwise will recheck at november appt [id number] Dhiraj Magallanes [facility] Internal Medicine [address] [facility] [address] [address] 11/28/2018 11:19:36 11/28/2018 12:17:40 Adult health examination 105048534 Z00.00 doing welll no major issues and overall is still very active despite her arthritis Neuropathic pain 3628491 09 M79.2 [id number] Dhiraj Magallanes [facility] Internal Medicine [address] [facility] [address] [address] 05/30/2019 13:23:54 05/30/2019 13:56:44 Hypothyroidism 51458161 E03.9 will have her get a tsh Hyperlipidemia 94030458 E78.5 will be stopping checking cholestero l and will be stopping the lovastatin as it is poss contributi ng to her muscle fatigue etc Essential hypertension 95271554 I10 lisinopril is stopped due to cough also having a lot of fatigue and this is a possibilit y Depressive disorder 6211 9007 F32.9 long discussion re feeling down dosent feel it is working as well anymore we will change her med to duloxetine 60 mg [id number] Dhiraj Magallanes DO [facility] [address] [facility] [address] [address] 08/01/2019 15:03:02 08/01/2019 15:56:14 Essential hypertension 87898827 I10 lisinopril is stopped due to cough also having a lot of fatigue and this is a possibilit y Hypothyroidism 44493349 E03.9 will have her get a tsh [id number] Dhiraj Magallanes [facility] Internal Medicine [address] [facility] [address] [address] 06/02/2020 10:12:33 06/02/2020 11:00:28 Allergic reaction to insect bite 139566258 T78.40XA due to the reaction of the bite and the discomfort I will start her on both prednisone and an abx to prevent infection and reduce swelling and allergic reaction to the bite [id number] Dhiraj Magallanes [facility] Internal Medicine [address] [facility] [address] 12/03/2020 13:37:43 12/03/2020 14:32:01 Active or passive immunization 818114074 Z23 utd Adult heal th examination 614009064 Z00.00 doing well no major issues and overall is still very active despite her arthritis Essential hypertension 92457838 I10 lisinopril is stopped due to cough also having less of fatigue now off the lisinopril Hyperlipidemia 33946445 E78.5 will be stopping checking cholestero l have stopped the lovastatin as it is contributi ng to her muscle fatigue Hypothyroidism 28950534 E03.9 will have her get a tsh Degenerati on of lumbosacral intervertebral disc 29213570 M51.37 will cont tramadol 100 at hs and 50 as prn [id number] Dhiraj Magallanes [facility] Internal Medicine [address] [facility],[place] [address] 02/03/2022 13:40:23 02/05/2022 09:04:34 Hypothyroidism 54943554 E03.9 will have her get a tsh Essential hypertension 87982344 I10 lisinopril is stopped due to cough also having less of fatigue now off the lisinopril Hyperlipidemia 59937685 E78.5 will be stopping checking cholestero l have stopped the lovastatin as it is contributi ng to her muscle fatigue Degenerati on of lumbosacral intervertebral disc 16962198 M51.37 will cont tramadol 100 at hs and 50 as prn Renewal of prescription 563379638 Z76.0 [id number] Dhiraj Magallanes [facility] Internal Medicine [address] [facility] [address] [address] 08/11/2022 09:10:28 08/11/2022 09:50:52 Essential hypertension 31501507 I10 lisinopril hasd been stopped due to cough also having less of fatigue now off the lisinopril Hypothyroidism 77515413 E03.9 will have her get a tsh Vitamin D deficiency 347 10602 E55.9 stable and doing well now 56 Mood disorder 45939613 F 39 [id number] Dhiraj Magallanes, [facility] Internal Medicine [address] [facility] [address],[place] [address] 08/18/2022 09:48:36 08/18/2022 16:36:27 Meltaurus 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 will fu with lab-workd/ c NSAIDsstar t pantoprazo le, fu with lab work [id number] Dhiraj Magallanes [facility] Internal Medicine [address] [facility] [address],[place] [address] 02/16/2023 13:22:47 02/16/2023 14:18:15 Essential hypertension 54739284 I10 lisinopril hasd been stopped due to cough also having less of fatigue now off the lisinopril Hypothyroidism 80044161 E03.9 will have her get a tsh Degenerati on of lumbosacral intervertebral disc 28452361 M51.37 will cont tramadol 100 at hs [id number] as prn Mood disorder 27195881 F 39 Bilateral osteoarthritis of knees 0557614194 73039 M17.0 we [place] ken[place] [id number] Dhiraj Magallanes [facility] Internal Medicine [address] [facility] [address] [address] 03/01/2023 13:26:52 03/02/2023 11:17:11 Bilateral osteoarthritis of knees 9872308892 49781 M17.0 well tolerated [id number] Dhiraj Magallanes [facility] Internal Medicine [address] [facility] [address],[place] [address] 07/11/2023 11:20:14 07/11/2023 16:22:34 Essential hypertension [id number] I10 lisinopril hasd been stopped due to cough also having less of fatigue now off the lisinopril Hyperlipidemia 16725392 E78.5 will be stopping checking cholestero l have stopped the lovastatin as it is contributi ng to her muscle fatigue Hypothyroidism 92573704 E03.9 will have her get a tsh Degenerati on of lumbosacral intervertebral disc 12270495 M51.37 will cont tramadol 100 at hs [id number] as prn [id number] Dhiraj Magallanes [facility] Internal Medicine [address] [facility] [place] [address] 02/14/2024 13:22:39 02/14/2024 14:52:48 Essential hypertension [id number] I10 lisinopril hasd been stopped due to cough also having less of fatigue now off the lisinopril Hyperlipidemia 99025980 E78.5 will be stopping checking cholestero l have stopped the lovastatin as it is contributi ng to her muscle fatigue Vitamin D deficiency 347 91072 E55.9 stable and doing well now 56 Osteoarthr itis of left knee joint [id number] 21103 M17.12 will get disability [id number] Dhiraj Magallanes [facility] Internal Medicine [address] [facility],[place] [address] 11/16/2024 13:56:27 11/16/2024 14:44:45 Depression screening [id number] Z13.31 SCREENING NEGATIVE Osteoarthr itis of joint of hand 38485068 M19.042 recommende d ortho surgeon referral [id number] Dhiraj Magallanes [facility] Internal Medicine [address] [facility],[place] [address] 03/25/2025 13:25:35 03/25/2025 13:51:17 Depression screening [id number] Z13.31 equiv due to loss of Essential hypertension 02756985 I10 lisinopril hasd been stopped due to cough also having less of fatigue now off the lisinopril Hyperlipidemia 07337089 E78.5 will be stopping checking cholestero l have stopped the lovastatin as it is contributi ng to her muscle fatigue Hypothyroidism 99327123 E03.9 will have her get a tsh Vitamin D deficiency 347 11631 E55.9 stable and doing well now 56 Health Concerns Section Related Observation LastModified by Organization Detai ls LastModified Time None Recorded Concern Status LastModified by Organization Details LastModified Time None Recorded Advance Directives Directive None Recorded Payers Encounter Date Sequence Insurance Name Policy Number Policy Wood Covered Member ID Wood Member ID Guarantor Name 03/01/2023 1 [facility] - MEDICARE PREFERRED (MEDICARE REPLACEMENT HMO) ROSETTA Robertsri [id number] Rama Rahmanilleri 07/11/2023 1 [facility] - MEDICARE PREFERRED (MEDICARE REPLACEMENT HMO) ROSETTA Rahmanilleri [id number] Rama Rahmanilleri 02/14/2024 1 [facility] - MEDICARE PREFERRED (MEDICARE REPLACEMENT HMO) ROSETTA Rahmanilleri [id number] Rama Camilleri 11/16/2024 1 [facility] - MEDICARE PREFERRED (MEDICARE REPLACEMENT HMO) ROSETTA Rahmanilleri [id number] Rama Camilleri 03/25/2025 1 [facility] - MEDICARE PREFERRED (MEDICARE REPLACEMENT HMO) ROSETTA Rahmanilleri [id number] Rama Camilleri 03/25/2025 2 [place] [facility] Rama Rahmanilleri [id number] Rama Rahmanilleri Notes Date Note Type Note Provider Name and Address Organization Details Recorded Time 03/01/20 23 text/htm l left knee just like other sore and hard to walk on Dhiraj Magallanes DO [address] [place], [address], [facility] [place] [facility] 03/01/2023 13:46:50 07/11/20 23 text/htm l here for rechk and is doing okhad a left finger paronychia which is no healedstill having a great deal of back pain takes 2 tramadol at night and tylenoluses gabapent at bedtime with good results for sleepappetite okbowels ok bladder ok Dhiraj Magallanes DO [address] [place], [address], [facility] [place] [facility] 07/11/2023 12:07:10 02/14/20 24 text/htm l here for rechk and is having a lot of problem with her knee and her backasking for disability platerelates struggles to walk distances Dhiraj Magallanes DO [address] [place], [address], [facility] [place] [facility] 02/14/2024 13:51:48 01/03/20 25 text/htm l co bilateral hand pain the patient is having bilateral hand pain L more than Rpatient is right hand dominant no injury or trauma recently OA bilaterally with neuropathy L handcontracture at the ring finger of the right handprevious scarring from surgeon after tearing one of the flexor tendons recommended fu with ortho hand surgeon for eval and treatment GAYLE MCBRIDE [address] [place], [address], [facility] [place] [facility] 11/16/2024 14:30:08 03/25/20 25 text/htm l Care Management - Acquired HypothyroidismReported bypatient.Medication Education:understands administration; understands effect of concurrent medications; understands missed doses; understands consequences of noncompliance Associated Symptoms:no abnormal weight gain; no tiredness; no dry skin; no cold intolerance; no constipation; no diarrhea; no goiterCare Management - HyperlipidemiaReported bypatient.Control:usually well controlled; improving; at goal Complications:no coronary artery disease; no heart attack; no cardiovascular disease; no pancreatitis; no strokeCare Management - HypertensionReported bypatient.Self Care:not under emotional stress Severity:symptoms are improving; does not interfere with daily activities Associated Symptoms:no dizziness; no lightheadedness; no chest pain; no shortness of breath; no palpitations; no edema; no calf muscle cramps; no blurred vision; no confusion; no headaches; no fatigue here for rechk and is doing okrelates has been quiet at home Dhiraj Magallanes DO [address] [place], [address], [facility] [place] [facility] 03/25/2025 13:47:23 OBGyn Episode No OBEpisode recorded.
[2025-04-03 13:05] LABS: MANUAL DIFF FLAG NO
[2025-04-03 13:22] LABS: Basophils Percent Auto 0.7 % (0-2); Eosinophils Absolute Auto 0.1 X10*3/uL (0.0-0.4); Eosinophils Percent Auto 1.7 % (0-4); Hematocrit 37.6 % (37.0-47.0); Imm Gran Abs Auto 0.02 X10*3/uL (0.00-0.03); Imm Gran Pct Auto 0.3 % (0.0-0.4); Lymphocytes Absolute Auto 1.9 X10*3/uL (1.2-4.9); Lymphocytes Percent Auto 32.1 % (20-40); Mean Corpuscular HGB Conc 34.6 g/dl (31.0-35.0); Mean Corpuscular Hemoglobin 34.7 pg (27.0-33.0); Mean Corpuscular Volume 100.3 fL (80.0-98.0); Mean Platelet Volume 10.4 fL (9.4-12.3); Monocytes Absolute Auto 0.5 X10*3/uL (0.1-1.2); Monocytes Percent Auto 7.8 % (2-11); Neutrophils Absolute Auto 3.4 x10*3/uL (2.0-8.3); Neutrophils Percent Auto 57.4 % (45-73); Platelet Count 211 X10*3/uL (160-400); Red Blood Count 3.75 X10*6/uL (4.20-5.50); Red Cell Distribution Width 12.5 % (11.0-16.0); White Blood Count 5.9 X10*3/uL (4.8-10.8)
[2025-04-03 14:10] LABS: Folate 7.8 ng/mL (> or = 4.0); Vitamin B12 375 pg/mL (200-900)
[2025-04-03 14:46] LABS: Alanine Aminotransferase 12 U/L (0-31); Albumin Level 4.3 g/dL (3.5-5.0); Anion Gap 13 (12-20); Aspartate Amino Transferase 28 U/L (5-31); Bilirubin Total 0.6 mg/dL (0.0-1.0); Blood Urea Nitrogen 15 mg/dL (9-16); Calcium 9.2 mg/dL (8.4-10.2); Carbon Dioxide 26 mmol/L (22-29); Chloride 103 mmol/L (96-108); Estimated Glomerular Filt Rate 54; Glucose Random 95 mg/dL (60-115); Potassium 4.7 mmol/L (3.3-5.1); Sodium 137 mmol/L (135-145); Total Protein 6.4 g/dL (6.5-8.0)
[2025-04-03 14:47] LABS: Thyroid Stimulating Hormone 3.04 uIU/mL (0.32-4.0); Vitamin D 25-OH Total 31.9 ng/mL (>30)
[2025-04-03 16:01] LABS: Alkaline Phosphatase 55 U/L (39-117)
== END 2025-04-03 11:33 | disposition home or self-care (01) ==
LOC: HO.MANLDS 11:32
PROVIDERS: Visit Provider Internal Medicine
DX: I10 Essential (primary) hypertension (principal); E03.9 Hypothyroidism, unspecified; E55.9 Vitamin D deficiency, unspecified
CPT/HCPCS: 36415; 80053; 82306; 82607; 82746; 84443; 85025